=== PATIENT | male | born 1945 | race Caucasian/White ===

== ENCOUNTER → 2016-08-22 | Outpatient (CLI) | payer OTHER | LOC: BHFA 13:30 | PROVIDERS: ATTEND Internal Medicine Cardiovascular Disease | DX: I48.91 Unspecified atrial fibrillation (principal) ==

== ENCOUNTER → 2018-08-10 | Outpatient (CLI) | payer OTHER | LOC: BHFA 11:30 | PROVIDERS: ATTEND Internal Medicine Cardiovascular Disease | DX: I48.91 Unspecified atrial fibrillation (principal) ==

== ENCOUNTER → 2018-09-07 | Outpatient (CLI) | payer OTHER ==
[~2018-09-07] MED LIST: IOPAMIDOL (ISOVUE 370) 100 ML BTL IV ONE
== END ==
LOC: FIMAGING 08:09
PROVIDERS: ATTEND Internal Medicine Cardiovascular Disease
DX: R91.1 Solitary pulmonary nodule (principal)
CPT/HCPCS: 75572; Q9967; 82565-PO

== ENCOUNTER 2018-09-08 11:06 | Observation (INO) | payer OTHER ==
[2018-09-08] MEDS ORDERED: NS 1,000 ML IV ONE (11:50)
[2018-09-08 12:20] LABS: PLATELET COUNT 204 10^3/uL (150-400)
[2018-09-08 12:30] LABS: INR 1.08 (0.83-1.16); PROTIME(PATIENT) 13.6 SEC (12.0-15.0)
--- NOTE | 2018-09-08 12:43 | PDGENHP ---
History & Physical Chief Complaint: Atrial fibrillation s/p 1 prior ablation History of Present Illness: Recurrent, symptomatic episodes of PAF Relevant Physical Exam: A&Ox4, no apparent distress, regular rate and rhythm, S1 , S2, pulses 2+ bilaterally, no edema Cardiorespiratory Assessment: Proceed with NORMA and AF ablation as planned for today
[2018-09-08] MEDS ORDERED: HEPARIN/DEXTROSE 25,000 UNIT/500 ML BAG ONE (12:45)
[2018-09-08] MEDS ORDERED: BUPIVACAINE 0.5% 30 ML SDV ONE (12:45)
[2018-09-08] MEDS ORDERED: HEPARIN 10,000 UNIT/10 ML MDV (1,000 UNIT/ML) ONE ×2 (12:45→15:16)
--- NOTE | 2018-09-08 13:09 | PDANEPAE ---
ANE History of Present Illness ep ANE Past Medical History - Cardiovascular History Hx Hypertension: No Hx Arrhythmias: Yes Hx Chest Pain: No Hx Coronary Artery / Peripheral Vascular Disease: No Hx CHF / Valvular Disease: No Hx Palpitations: No - Pulmonary History Hx COPD: No Hx Asthma/Reactive Airway Disease: No Hx Recent Upper Respiratory Infection: No Hx Oxygen in Use at Home: No Hx Sleep Apnea: No - Neurologic History Hx Cerebrovascular Accident: No Hx Seizures: No Hx Dementia: No - Endocrine History Hx Diabetes: No Hypothyroid: No Hyperthyroid: No Obesity: no - Renal History Hx Renal Disorders: No - Liver History Hx Hepatic Disorders: No - Chronic Pain History Chronic Pain: No ANE Review of Systems Review of Systems: - Exercise capacity Exercise capacity: >=4 METS ANE Patient History - Allergies Allergies/Adverse Reactions: gluten Allergy (Verified 08/09/14 18:26) - Home Medications Home medications: home medication list seen and reviewed Home Medications: Apixaban [Eliquis] 5 mg PO BID 08/09/14 [Last Taken Unknown] Herbals/Supplements -Info Only 1 ea PO DAILY 08/09/14 [Last Taken Unknown] Magnesium Oxide [Magnesium Oxide 400 mg (*)] 400 mg PO DAILY 08/09/14 [Last Taken Unknown] Multivitamins [Multivitamin (*)] 1 each PO DAILY 08/09/14 [Last Taken Unknown] Omeprazole [Prilosec 20 mg] 20 mg PO DAILY 08/09/14 [Last Taken Unknown] Diltiazem HCl [Diltiazem 24Hr ER] 120 mg PO HS 09/01/18 [Last Taken Unknown] - NPO status NPO Status: no food or drink >8 hours - Anes Hx Anes Hx: no prior problems - Smoking Hx Smoking Status: Former smoker ANE Labs/Vital Signs - Labs Result Diagrams: 09/08/18 12:00 09/08/18 12:00 ANE Physical Exam - Airway Mallampati Score: Class 2 Mouth exam: normal dental/mouth exam - Pulmonary Pulmonary: no respiratory distress - Cardiovascular Cardiovascular: regular rate and rhythym - ASA Status ASA Status: II ANE Anesthesia Plan Anesthesia Plan: general endotracheal anesthesia
[2018-09-08] MEDS ORDERED: PROPOFOL 200 MG/20 ML VIAL ONE (13:31)
[2018-09-08] MEDS ORDERED: ROCURONIUM 100 MG/10 ML VIAL ONE (13:31)
[2018-09-08] MEDS ORDERED: fentaNYL 100 MCG/2 ML INJ ONE (13:31)
[2018-09-08] MEDS ORDERED: LIDOCAINE 2% 2 ML INJ ONE ×3 (13:31)
[2018-09-08] MEDS ORDERED: SUCCINYLCHOLINE CHLORIDE 200 MG/10 ML SYR IVP ONE (13:31)
[2018-09-08] MEDS ORDERED: DEXAMETHASONE 4 MG/ML VIAL ONE (13:32)
[2018-09-08] MEDS ORDERED: PHENYLEPHRINE HCL 100 MCG/ML SYR ONE ×2 (14:48)
[2018-09-08] MEDS ORDERED: ISOPROTERENOL HCL/D5W 0.2 MG/50 ML BAG IV ONE (15:27)
[2018-09-08] MEDS ORDERED: PROTAMINE SULFATE 50 MG/5 ML VIAL IVP ONE (15:33)
[2018-09-08] MEDS ORDERED: SUGAMMADEX SODIUM 200 MG/2 ML VIAL IVP ONE (16:05)
[2018-09-08] MEDS ORDERED: ONDANSETRON 4 MG/2 ML VIAL ONE (16:07)
[2018-09-08] MEDS ORDERED: ALBUTEROL 3 ML DEYVIAL IH PRN (16:36)
[2018-09-08] MEDS ORDERED: NALOXONE HCL 0.4 MG/ML INJ IVP PRN (16:36)
[2018-09-08] MEDS ORDERED: fentaNYL 100 MCG/2 ML INJ IVP PRN (16:36)
--- NOTE | 2018-09-08 16:36 | POSTANESTH ---
Post Anesthetic Evaluation Cardiovascular Status: Normal, Stable Respiratory Status: Normal, Stable Level of Consciousness/Mental Status: Can Participate in Eval Pain Control: Adequate, Prn Tx Ordered Nausea/Vomiting Control: Adequate, Prn Tx Ordered Complications Possibly Related to Anesthesia: None Noted
[2018-09-08] MEDS ORDERED: DILTIAZEM CD 120 MG CAP PO SCH (21:00)
[2018-09-08] MEDS: PANTOPRAZOLE SODIUM 40 MG TAB PO SCH (21:33)
[2018-09-08] MEDS: APIXABAN 5 MG TAB PO SCH (23:31)
[2018-09-09 05:52] LABS: PLATELET COUNT 182 10^3/uL (150-400)
[2018-09-09] MEDS: APIXABAN 5 MG TAB PO SCH (08:14)
[2018-09-09] MEDS: PANTOPRAZOLE SODIUM 40 MG TAB PO SCH (08:14)
[2018-09-09] MEDS ORDERED: MULTIVITAMINS 1 EACH TAB PO SCH (09:00)
[2018-09-09] MEDS ORDERED: Herbals/Supplements -Info Only PO SCH (09:00)
[2018-09-09] MEDS ORDERED: MAGNESIUM OXIDE 400 MG TAB PO SCH (09:00)
[2018-09-09 10:51] VITALS: BP 119/73
--- NOTE | 2018-09-09 11:46 | GDS ---
[f rep st] DISCHARGE SUMMARY SUPERVISING AUTOTRANSFUSIONIST: oJshua Delgadillo MD. ADMISSION DIAGNOSIS: Atrial fibrillation. DISCHARGE DIAGNOSIS: Atrial fibrillation status post successful reablation. PROCEDURES PERFORMED DURING HOSPITALIZATION: Electrocardiogram, echocardiogram , electrophysiology study, atrial fibrillation ablation. HOSPITAL COURSE: Patient presented 09/08/2018 for atrial fibrillation ablation in the setting of recurrent symptomatic episodes of paroxysmal atrial fibrillation status post 1 prior ablation at our institution. He underwent successful atrial fibrillation ablation with Dr. Joshua Delgadillo without any intra- procedure complications. He has done very well in the postprocedure setting and is appropriate and stable for discharge home today. CURRENT PHYSICAL EXAMINATION: GENERAL: Alert and oriented x4. No apparent distress. VITAL SIGNS: Blood pressure 119/73, heart rate 69, respiratory rate 18, SpO2 of 96% on room air, temp is 36.4 degrees Celsius. RESPIRATORY: Lungs are clear to auscultation without adventitious breath sounds. CARDIAC: Regular rate and rhythm, S1, S2. ABDOMEN: Normoactive bowel sounds times all 4 quadrants. No masses or tenderness. Soft to palpation. SKIN: [place], warm, dry without cyanosis, clubbing, or peripheral edema. EXTREMITIES: Bilateral pursestring sutures removed intact without evidence of redness, hematoma, swelling, oozing, or warmth to these sites. Pulses are 2+ bilaterally. No edema. LABORATORY STUDIES: Drawn today demonstrate WBC slightly elevated at 9.81, CBC and BMP otherwise stable compared to preprocedure. Troponin 0.205; please note the elevated troponin is to be expected in the postprocedure setting. PROCEDURES PERFORMED DURING HOSPITALIZATION: Electrophysiology study and atrial fibrillation ablation as mentioned above. Preliminary review of postprocedure echocardiogram demonstrates stable left ventricular systolic function without any wall motion abnormalities or pericardial effusion. Electrocardiogram this morning demonstrates normal sinus rhythm without new RI interval or ST or T-wave abnormalities. DISCHARGE DISPOSITION: The patient will be discharged home in stable condition. He is under activity restrictions as below. DISCHARGE MEDICATIONS: Please see discharge medication reconciliation sheet for full details. Please note, the patient was restarted on his Eliquis 6 hours post procedure, and he will discontinue his diltiazem at this time. He will continue a PPI 6 weeks post-procedure for GI prophylaxis DISCHARGE INSTRUCTIONS: Post-atrial fibrillation ablation instructions were reviewed with patient in detail. 1. We discussed activity restrictions including lifting no more than 10 pounds and avoidance of submerged bathing for 10 days. 2. He will get up and walk around every 45 minutes for 45 days while awake. 3. We reviewed bleeding precautions, monitoring for signs and symptoms of infection, monitoring for atrioesophageal fistula, and monitoring for sustained arrhythmia. At time of discharge, patient verbalized understanding regarding all discharge considerations. He has been instructed to follow up with Pulmonology either locally or with [facility] for further evaluation of a pulmonary nodule noted on chest CT earlier this week. He has a followup visit scheduled with [facility] within the next 4 weeks, and he will contact us with any new or concerning symptoms prior to his upcoming visit. Time spent on discharge greater than 30 minutes. /[id number]/MODL MTDD
--- NOTE | 2018-09-09 12:19 | EPPROC ---
Electrophysiology Procedure Note: 09/08/2018 ELECTROPHYSIOLOGIC STUDY AND CATHETER MEDIATED ABLATION FOR PAROXYSMAL ATRIAL FIBRILLATION Procedures performed: 99267-25 EP evaluation with RA/RV/LA pace/record, with arrhythmia induction 06333-92 EP evaluation with RA/RV pace record, insert/reposition catheter, with arrhythmia induction 92600 Atrial fibrillation ablation 08027 3D mapping Intracardiac echocardiogram Transseptal puncture Fluoroscopy INDICATION: Prior persistent atrial fibrillation Cryoballoon ablation in 2014 with no recurrence of AFIB until 1 year ago Now paroxysmal atrial fibrillation PROCEDURE: The patient arrived in the Electrophysiology Laboratory in the fasting state. The right groin, left groin and right infraclavicular area were prepped and draped in the usual sterile fashion. Anesthesiologist administered general anesthesia Dr. Jamie Thompson . All catheters were placed percutaneously using the Seldinger technique and advanced into position under fluoroscopic guidance. One #7 [place] deflectable octapolar electrode catheter was placed in the His-bundle position via the left femoral vein (2mm spacing, IVC electrode for unipolar recordings). This catheter was placed in the coronary sinus after transseptal puncture. One #8 [place] AcuNaV ultrasound catheter was placed in the left femoral vein and advanced into the right atrium. Programmed stimulation was performed from the right atrium, left atrium (CS) and right ventricle Intracardiac echo evaluation of the left atrium and pulmonary veins was performed. Baseline ACT was drawn and heparin bolus was administered and heparin drip was started prior to transseptal puncture. ACT was checked every 15 minutes and maintained in the range of 350-400 seconds. One SL1 sheath (8.5 Fr and 8 Fr) was inserted into the right femoral vein and advanced into the right atrium. Transseptal puncture was performed under intracardiac ultrasound, fluoroscopic and hemodynamic guidance placing the two sheaths into the left atrium. [place] RF needle (C0 curve) was used. Advancing sheath into LA was difficult and we had to use dilator followed by Mobi sheath for access. One #8 [place] quadrapolar electrode catheter (1mm-5mm-2mm spacing) with saline irrigated 3.5mm tip electrode ([employer] Thermo-Cool STSF catheter) and location sensor for the [employer] 3D mapping system was inserted through the transseptal sheath and positioned outside the orifice of the left superior pulmonary vein. A 15-25 mm variable Lasso catheter was placed inside the LSPV antrum. At baseline, the rhythm was sinus rhythm. A high-resolution electroanatomical map of the left atrium and pulmonary veins was obtained during atrial fibrillation. CT angiography of the pulmonary veins and left atrium obtained previously was used in the [employer]-MERGE system for guidance in placing the catheter. Intracardiac ultrasound was used to assist in placing the mapping catheter outside the antrum of the pulmonary veins. An esophageal temperature probe (12 electrode, Circa) was placed by the anesthesiologist at the beginning of the procedure. Esophageal temperature was monitored continuously and RF ablation was interrupted if there was a temperature rise >0.5 C. The esophagus was closer to the LIPV. High resolution voltage map of LA and 4 PV was obtained using Pentaray. LIPV and RIPV were isolated. There were late low voltage potentials in LSPV. RSPV was clearly reconnected anteriorly. Ablation was performed anterior to LSPV and LIPV, LPV tea, anterior to RSPV and roof near RSPV and posterior to LIPV (2 lesions), Post ablation mapping showed all 4 PV remained isolated. Bidirectional (entrance and exit) conduction block was confirmed. Isoproterenol 20 mcg/min was infused for 10 minutes. There was no spontaneous atrial fibrillation. Mapping of all 4 pulmonary veins after isoproterenol infusion (30 minutes post last ablation lesion) showed that all 4 pulmonary veins remained isolated. ICE imaging was consistent with pre ablation imaging; moreover it showed no pericardial effusion or LA/ROSARIO thrombus at the end of the procedure. The catheters were withdrawn. SL1 sheaths were changed to 9 Fr short sheaths. Protamine was given. The sheaths were removed and manual pressure was used for hemostasis. The patient was recovered from anesthesia. There were no complications. CONCLUSIONS: 1. Paroxysmal atrial fibrillation. 2. Successful pulmonary vein re isolation procedure (left and right pulmonary vein antrum) 3. No apparent complications. Patient Problems: Problems Problem Status Onset Atrial fibrillation or flutter Acute
--- NOTE | 2018-09-09 13:14 | ECHO ---
[email or web address] [id number] Main: [phone] Echocardiography Examination Transthoracic Name: CORINA ABREU MR#: [id number] Study Date: 09/09/2018 Study Time: 08:11 AM Date of : 1945 Age: 72 year(s) Height: 190.5 cm (75 in.) Weight: 88.45 kg (195 lb.) BSA: 2.17 m2 Gender: Male Examination: Echo Contrast: Image Quality: Technically Difficult Rhythm: Heart Rate: BP: 105 mmHg/68 mmHg Indication: F/U post EP study Procedure Staff Referring Physician: Cycle Analyst: Celeste Chou LIZABETH Reading Physician: Tony Montoya MD Requesting Provider: Ordering Physician: Joshua Delgadillo MD Indication: F/U post EP study Measurements Chambers AV/MV Label Value Normal Value Label Value Normal Value LVDd, 2D 4.1 cm (4.2cm - 5.9cm) AV PGmean 3 mmHg LADs, 2D 3.1 cm (3cm - 4cm) AV Vmax 1.26 m/s MV E Vmax 0.95 m/s MV A Vmax 0.42 m/s MV E/A 2.26 MV E/E' lateral 15.2 MV E/E' septal 13.3 (0.45 - 1.25) MV E' septal 0.07 m/s MV E' lateral 0.06 m/s MV E/E' mean 14.62 MV E' mean 0.06 m/s TV/PV Label Value Normal Value RA Pressure 5 mmHg RVSP 28 mmHg TR Pmax 23 mmHg TR Vmax 2.42 m/s Patient: CORINA ABREU Study Date: 09/09/2018 Page 1 of 2 08:11 AM Conclusions Overall Conclusions: Normal study Findings Left Ventricle: Left ventricle is normal in size. Normal global systolic left ventricular function. EF range is estimated at 65 % - 70 %. Left ventricle wall thickness is normal. There are no regional wall motion abnormalities. Left ventricular diastolic function parameters are normal. IVS: The septum is intact. Right Ventricle: Normal size right ventricle. Right ventricular systolic function is normal. Left Atrium: The left atrium is normal in size. IAS: Normal appearing atrial septum. Right Atrium: The right atrium is normal in size. Mitral Valve: Mildly calcified posterior mitral leaflet.. Mitral valve is normal in appearance. No mitral regurgitation. No mitral valve stenosis. Aortic Valve: Aortic leaflets exhibit normal cuspal separation. No aortic valve regurgitation. There is no aortic stenosis. Tricuspid Valve: Tricuspid valve is poorly visualized. Tricuspid valve leaflets are normal in appearance and function. No tricuspid regurgitation. No tricuspid valve stenosis. Right Ventricular systolic pressure is measured at 28 mmHg. Pulmonary artery pressure normal. Pulmonic Valve: Pulmonic valve is poorly visualized. Pulmonic leaflets exhibit normal cuspal separation. No pulmonic valve regurgitation is evident. There is no pulmonic valve stenosis. Aorta: The aorta is normal. Pericardium: Fat pad vs. trivial anterior pericardial effusion with echogenicity within.. No pleural effusion present. Exam Details Procedure Ordered: Echo Procedure Status: Routine study Image Quality: Technically Difficult Facility Location: Cardiac Echo 1 (No Signature Object) Patient: CORINA ABREU Study Date: 09/09/2018 Page 2 of 2 08:11 AM [id number]
--- NOTE | 2018-09-12 11:26 | ECHO ---
[email or web address] [address] Main: [phone] Echocardiography Examination Transesophageal Name: CORINA ABREU MR#: [id number] Study Date: 09/08/2018 Study Time: 01:40 PM Date of : 1945 Age: 72 year(s) Height: ( ) Weight: ( ) BSA: Gender: Male Examination: NORMA Contrast: Image Quality: Adequate Rhythm: Heart Rate: BP: / Indication: EP Study Procedure Staff Referring Physician: Powerhouse Mechanic Apprentice: Graciela Veronica RDCS Reading Physician: Joshua Delgadillo MD Requesting Provider: Ordering Physician: Joshua Delgadillo MD Indication: EP Study Acute complication: None Findings Left Ventricle: Left ventricle is normal in size. Normal global systolic left ventricular function. The EF is visually estimated to be 60 %. There are no regional wall motion abnormalities. Right Ventricle: Normal size right ventricle. Right ventricular systolic function is normal. Left Atrium: No thrombus is identified in the left atrium. Left Atrium Appendage: Good color flow doppler in the left atrial appendage. No thrombus is identified. IAS: An agitated saline study was performed and was negative for intracardiac shunting. Mitral Valve: Mitral valve appears structurally normal. Mild mitral regurgitation. Aortic Valve: Aortic leaflets are structurally normal. Mild aortic regurgitation is present. Tricuspid Valve: Tricuspid valve leaflets are structurally normal. Trivial tricuspid regurgitation. Pulmonic Valve: Pulmonic leaflets are structurally normal. No significant pulmonic valve regurgitation is evident. Pericardium: No pericardial effusion. Patient: CORINA ABREU Study Date: 09/08/2018 Page 1 of 2 01:40 PM Exam Details Procedure Ordered: NORMA Procedure Status: Routine study Image Quality: Adequate Consent: Risks, alternatives of procedure explained to patient, informed consent obtained Probe Insertion: Attending transmission line engineer Facility Location: EP Lab (No Signature Object) Patient: CORINA ABREU Study Date: 09/08/2018 Page 2 of 2 01:40 PM [id number]
== END 2018-09-09 11:55 | disposition home or self-care (01) ==
LOC: FCATH 11:06 → F2N 16:16
PROVIDERS: ADMIT Internal Medicine Cardiovascular Disease; ATTEND Internal Medicine Cardiovascular Disease
DX: I48.0 Paroxysmal atrial fibrillation (principal)
CPT/HCPCS: 93306; 93312; 93613; 93621; 93623; 93656; 93662; C1731; C1732; C1759; C1766; C1893; J0330; J1100; J1644; J2370; J2405; J2704; J2720; J3010